=== PATIENT | male | born 1985 | race African-American/Black ===

== ENCOUNTER 2017-03-11 18:26 | Emergency (ER) | payer OTHER ==
[2017-03-11 20:06] LABS: BILIRUBIN 1+ mg/dL (NEGATIVE); BLOOD 1+ Ery/uL (NEGATIVE); COLOR YELLOW (YELLOW); GLUCOSE (U) NORMAL (NORMAL); KETONE (U) TRACE mg/dL (NEGATIVE); LEUKOCYTES 2+ Leu/uL (NEGATIVE); NITRITE POSITIVE (NEGATIVE); PROTEIN 1+ mg/dL (NEGATIVE); SPECIFIC GRAVITY 1.025 (1.001-1.030); pH 5.5 (5.0-9.0)
[2017-03-11 20:08] LABS: CLARITY SLIGHTLY HAZY (CLEAR)
[2017-03-11 20:10] LABS: BACTERIA 3+; URINARY WBC 20-50
[2017-03-11 20:11] LABS: MUCOUS TRACE
== END 2017-03-11 20:14 | disposition home or self-care (01) ==
LOC: FER 18:26
PROVIDERS: Nurse Practitioner
DX: G82.50 Quadriplegia, unspecified (principal); R33.9 Retention of urine, unspecified; S90.911D Unspecified superficial injury of right ankle, subsequent encounter; X58.XXXD Exposure to other specified factors, subsequent encounter
CPT/HCPCS: 81001; 87076; 87088; 87186